=== PATIENT | female | born 1980 | race Two or more races ===

== ENCOUNTER 2024-10-14 06:04 | Emergency (ER) | payer MEDICAID, SELFPAY ==
[2024-10-14 06:05] VITALS: BMI 45.2
[2024-10-14 06:10] VITALS: BP 158/89; PULSE 90; RESP 19; TEMP 36.5; O2SAT 99
--- NOTE | 2024-10-14 06:23 | XR_ITS ---
Examination: CT abdomen and pelvis without contrast. Coronal 3-D reconstructions. Sagittal 2-D reconstructions. Date and time of exam:October 14, 2024 at 0920 hrs. Indications: Onset right lower abdominal pain today CTDI: vol (mGy): 15.1 DLP: (mGycm): 908 Technique: Axial images of the abdomen have been obtained, 3 mm slice thickness Intravenous contrast material has not been administered. Low dose protocols were performed. One or more of the following dose reduction techniques were used; automated exposure control, adjustment of the mA and/or KV according to patient size, use of iterative reconstruction technique. Findings: Diffuse fatty infiltration throughout the liver Absent gallbladder Spleen not enlarged No pancreatic or adrenal mass No renal or ureteral calculi, no hydronephrosis Aorta normal size Inflammatory change about diverticula in the cecum with reactive lymph nodes Left lateral fat-containing pelvic wall hernia defect axial image 207 Anteverted uterus with uterine fundal masses Contracted urinary bladder Impression: Acute diverticulitis cecum, no peridiverticular abscess
--- NOTE | 2024-10-14 06:24 | PD.EDRME ---
Rapid Medical Screening Exam RME Arrival date/time: 10/14/24 06:04 Chief Complaint: Abdominal Pain Time Seen by Provider: 10/14/24 06:16 Vital signs: Vital Signs Temperature 97.7 F 10/14/24 06:10 Pulse Rate 90 10/14/24 06:10 Respiratory Rate 19 10/14/24 06:10 Blood Pressure 158/89 H 10/14/24 06:10 Pulse Oximetry (%) 99 10/14/24 06:10 Oxygen Delivery Method Room Air 10/14/24 06:10 Vital signs reviewed by provider: Yes RME Narrative: 49-year-old female presents for evaluation of right-sided abdominal pain. She reports that it radiates from her right lower quadrant to her right upper quadrant and right flank. She describes it as cramping with intermittent nausea. Denies emesis, vaginal bleeding, fever, chills, chest pain. LNMP x 6 weeks ago. Patient reports history of tubal ligation.
[2024-10-14] MEDS: KETOROLAC INJ 60 MG/2 ML VIAL 30 MG IM (06:38)
[2024-10-14 07:20] LABS: Basophils # (Auto) 0.1 Thou/mm3 (0.0-0.2); Basophils % (Auto) 0 % (0-2.5); Eosinophils # (Auto) 0.2 Thou/mm3 (0.0-0.5); Eosinophils % (Auto) 2 % (0-10); Hematocrit 37.7 % (36.0-46.0); Hemoglobin 11.7 g/dL (12.0-16.0); Immature Granulocytes % (Auto) 0 % (0-0); Immature Granulocytes Auto 0.04 Thou/mm3 (0.00-0.00); Lymphocytes % (Auto) 24 % (10-50); Mean Corpuscular Hemoglobin 26.4 pg (25.0-35.0); Mean Corpuscular Volume 85 fL (80-100); Monocytes # (Auto) 0.7 Thou/mm3 (0.0-0.8); Monocytes % (Auto) 6 % (0-12); Neutrophils # (Auto) 8.5 Thou/mm3 (1.8-7.7); Neutrophils % (Auto) 68 % (37-80); Nucleated Red Blood Cell % 0 /100 WBC (0); Platelet Count 316 Thou/mm3 (140-440); RDW Standard Deviation 50.6 fL (36.4-46.3); Red Blood Count 4.44 Miln/mm3 (4.00-5.20); White Blood Count 12.4 Thou/mm3 (3.6-11.0)
[2024-10-14 07:42] LABS: Alanine Aminotransferase 74 U/L (10-49); Albumin, Serum 4.3 gm/dL (3.5-5.0); Albumin/Globulin Ratio 1.3 (1.2-2.2); Alkaline Phosphatase 132 U/L (46-116); Anion Gap 5 (7-16); Aspartate Amino Transferase 55 U/L (0-34); BUN/Creatinine Ratio 22 Ratio (12-20); Bilirubin,Total 0.5 mg/dL (0.3-1.2); Blood Urea Nitrogen 11 mg/dL (9-23); Calcium 9.2 mg/dL (8.3-10.6); Calcium (Corrected) 9.2 mg/dL (8.5-10.1); Carbon Dioxide 26.1 mMol/L (20.0-31.0); Chloride 107 mMol/L (98-107); Creatinine (Component) 0.5 mg/dL (0.6-1.3); Estimated Creatinine Clearance 152.4 mL/min (>60); Globulin 3.2 gm/dL (2.3-3.5); Glucose 124 mg/dL (74-106); Lipase 38 U/L (12-53); Osmolality,Calculated 276 (275-295); Sodium 138 mMol/L (136-145); Total Protein 7.5 gm/dL (5.7-8.2); eGFR > 60 See Note
[2024-10-14 08:15] LABS: Collection Type, Urine Clean Catch
[2024-10-14 08:45] LABS: Bilirubin,Urine Negative (Negative); Blood,Urine Negative (Negative); Clarity,Urine Clear (Clear/Hazy); Color,Urine Lt-Yellow (Lt Yel-Yel); Glucose, Urine Negative (Negative); Ketones,Urine Negative (Negative); Leukocyte Esterase,Urine Positive (Negative); Nitrite,Urine Negative (Negative); Protein,Urine Negative (Neg - Trace); RBC,Urine 2 /hpf (0-3); Specific Gravity,Urine 1.022 (1.001-1.035); Squamous Epithelial Cell,Urine 8 /hpf (0-5); Urobilinogen,Urine Negative mg/dL (0.0-1.0); WBC,Urine 4 /hpf (0-5)
[2024-10-14 09:00] LABS: HCG Qualitative,Urine Negative
--- NOTE | 2024-10-14 10:36 | EDNOTE_ITS ---
ED Abdominal Pain RME/HPI General Chief Complaint: Abdominal Pain Stated complaint: ABD PAIN X 1DAY Time seen by provider: 10/14/24 06:16 Arrival date/time: 10/14/24 06:04 Limitations: no limitations RME / HPI RME / HPI narrative: 49-year-old female presents for evaluation of right-sided abdominal pain. She reports that it radiates from her right lower quadrant to her right upper quadrant and right flank. She describes it as cramping with intermittent nausea. Denies emesis, vaginal bleeding, fever, chills, chest pain. LNMP x 6 weeks ago. Patient reports history of tubal ligation. Related Data Previous Rx's ?Medication ?Instructions ?Recorded HYDROCODONE BIT/ACETAMINOPHEN 1 tab PO Q4HR PRN PAIN SCALE 4-6 11/20/16 (Vicodin 5/300) (Moderate #30 tabs bisacodyl 10 mg rectal suppository 10 mg MD QDAY PRN constipation #12 12/02/18 (Dulcolax (bisacodyl)) ea dicyclomine 20 mg tablet 20 mg PO QID PRN abdominnal 12/02/18 cramping #10 tabs magnesium citrate 150 ml PO QDAY PRN constipation 12/02/18 #296 mL polyethylene glycol 3350 17 gram 17 gm PO QDAY PRN constipation #7 12/02/18 oral powder packet (Miralax) ea Allergies Allergy/AdvReac Type Severity Reaction Status Date / Time calcium Allergy Mild RASH Verified 12/02/18 08:52 iron Allergy Mild RASH Verified 12/02/18 08:52 Review of Systems Constitutional Constitutional: Denies body ache(s), Denies chills and Denies fever(s) ENT Ears, Nose, Mouth, and Throat: Denies disequilibrium, Denies dizziness and Denies neck pain Cardiovascular Cardiovascular: Denies chest pain, Denies dyspnea and Denies leg edema Respiratory Respiratory: Denies cough and Denies dyspnea Gastrointestinal Gastrointestinal: Reports abdominal pain, Denies change in stool character, Denies constipation, Denies excessive flatus, Denies loose stools, Denies melena, Reports nausea and Denies vomiting Genitourinary Genitourinary: Reports amenorrhea, Denies dysuria, Reports flank pain (right) and Denies hematuria Musculoskeletal Musculoskeletal: Denies back pain, Denies neck pain and Denies numbness Integumentary/Breasts Skin/Breast: Denies rash Neurologic Neurologic: Denies disequilibrium, Denies dizziness and Denies numbness Past Medical History Social History SMOKING STATUS: Never smoker ED Exam General Limitations: Present no limitations General appearance: Present alert and in no apparent distress Head Head exam: Present atraumatic and normocephalic Eye Eye exam: Present normal appearance and EOMI ENT ENT exam: Present normal exam, normal oropharynx and mucous membranes moist Neck Neck exam: Present normal inspection and full ROM Chest Chest inspection: Present normal inspection and symmetric chest wall rise Respiratory Respiratory exam: Present normal lung sounds bilaterally; Absent respiratory distress Cardiovascular Cardiovascular exam: Present regular rate and +S1 Abdominal Exam Abdominal exam: Present soft and normal bowel sounds; Absent distention, tenderness, guarding, rebound, rigidity, organomegaly, psoas sign, Rovsing's sign, ascites, mass, bruit or pulsatile mass Extremities Exam Extremities exam: Present normal inspection and full ROM Back Exam Back exam: Present normal inspection and full ROM; Absent CVA tenderness (R) or CVA tenderness (L) Neurological Exam Neurological exam: Present alert and normal gait Psychiatric Psychiatric exam: Present normal affect Skin Skin exam: Present warm, dry and normal color Course Quality Measures none Orders Category Date Time Status CT abdomen pelvis wo con Stat Exams 10/14/24 06:23 Completed CBC Stat Lab 10/14/24 07:01 Completed CMP [Comprehensive Metabolic Panel] Stat Lab 10/14/24 07:01 Completed HCG Qualitative,Urine Stat Lab 10/14/24 08:09 Completed Lipase Stat Lab 10/14/24 07:01 Completed UA [Urinalysis] Stat Lab 10/14/24 08:09 Completed Ciprofloxacin HCl [Ciprofloxacin] Med 10/14/24 10:36 Discontinued 750 mg PO X1 ONE Ketorolac Inj [Toradol Inj] Med 10/14/24 06:23 Discontinued 30 mg IM X1 ONE metroNIDAZOLE [Flagyl] Med 10/14/24 10:36 Discontinued 500 mg PO X1 ONE Vital Signs Vital signs: Vital Signs Temperature 97.7 F 10/14/24 06:10 Pulse Rate 90 10/14/24 06:10 Respiratory Rate 19 10/14/24 06:10 Blood Pressure 158/89 H 10/14/24 06:10 Pulse Oximetry (%) 99 10/14/24 06:10 Oxygen Delivery Method Room Air 11/29/24 06:10 pulse ox 99% on RA, wnl. Abdominal Pain MDM MDM Narrative MDM Narrative:: 44-year-old female presented for evaluation of right sided abdominal pain. Patient reports history of appendectomy and cholecystectomy. Vital signs reassuring. Patient nontoxic-appearing with benign abdominal exam. Given her vague symptoms CT abdomen pelvis was ordered which showed fatty liver inf iltrates and diverticulitis involving the cecum without abscess. Antibiotics were ordered, however unfortunately patient left the emergency department before we could fully discussed the results of her workup today. Nursing staff attempted to call her multiple times but unfortunately she did not answer her phone. Patient remained stable in the department and a prescription was sent for antibiotics. Patient data External records reviewed:: [facility] previous records Clinical information provided by:: patient Social determinants that could affect healthcare access:: none Patient has the following chronic illnesses:: None reported. How is presenting disease/condition affected by chronic disease/condition?: no chronic disease Evaluation data The following diagnostics were reviewed and interpreted by me:: lab results and radiology exam(s) Lab and/or radiology exams considered but not ordered:: Considered not ordered. Interpretation Summary: Transaminitis with mild leukocytosis. Negative . CT abdomen showing diverticulitis involving the cecum without abscess. Absent appendix and gallbladder. Mild anemia without evidence of hemorrhage. Medications / Prescriptions Medications or Prescriptions considered but not ordered:: Rx given. Medication administrations:: Medication Administration History Discontinued Medications Ciprofloxacin (Ciprofloxacin Hcl 250 Mg Tablet) 750 mg PO X1 ONE Stop: 10/14/24 10:37 Last Admin: 10/14/24 10:53 Dose: 750 mg Documented By: UMAIR Ketorolac Tromethamine (Ketorolac Inj 60 Mg/2 Ml Vial) 30 mg IM X1 ONE Stop: 10/14/24 06:24 Last Admin: 10/14/24 06:38 Dose: 30 mg Documented By: ALEKSANDAR Metronidazole (Metronidazole 250 Mg Tablet) 500 mg PO X1 ONE Stop: 10/14/24 10:37 Last Admin: 10/14/24 10:53 Dose: 500 mg Documented By: UMAIR Rx given. Consultations Consultation(s) initiated? (list below): No Diagnosis Differential diagnosis abdominal pain: abdominal pain, calculus of kidney, diverticulitis, endometriosis, gastroenteritis, pancreatitis, small bowel obstruction and other Most likely diagnosis given after review of the tests above:: Nonspecific abdominal pain. Admission Indicated Admission indicated?: not indicated Admission Request Was there a request for admission?: No Disposition Plan Disposition Plan: Discharge Discharge Attestation Discharge Attestation: The patient and all family members were given an opportunity to ask questions and understood the discharge instructions. Discharge instructions specifically effects, indications for sooner follow up or return to the emergency department, and the expected course of current diagnosis. Patient condition: Stable Discharge Plan Plan Patient Disposition: HOME (Self Care) Prescriptions/Referrals Prescriptions/Med Rec: No Action HYDROCODONE BIT/ACETAMINOPHEN (Vicodin 5/300) 1 TAB tablet 1 tab PO Q4HR PRN (Reason: PAIN SCALE 4-6 (Moderate) Qty: 30 0RF dicyclomine 20 mg tablet 20 mg PO QID PRN (Reason: abdominnal cramping) Qty: 10 0RF magnesium citrate solution 150 ml PO QDAY PRN (Reason: constipation) Qty: 296 0RF Rx Instructions: only 1 dose today bisacodyl [Dulcolax (bisacodyl)] 10 mg suppository 10 mg MD QDAY PRN (Reason: constipation) Qty: 12 0RF Rx Instructions: if magnesium citrate and miraplax not effectiove polyethylene glycol 3350 [Miralax] 17 gram powder in packet 17 gm PO QDAY PRN (Reason: constipation) Qty: 7 0RF Rx Instructions: if magnesium citare no effectibe hold for loose stool Referrals: Federico Nelson MD [Primary Care Provider] - In 1 week Problem List Clinical Impression: Abdominal pain, Hernia of abdominal cavity, Diverticulitis, Elevated LFTs Patient/Caregiver Discharge Instructions Other Activity Instructions:: Take metronidazole and ciprofloxacin as prescribed for the next x 7 days for diverticulitis. Take ibuprofen as needed for abdominal pain. Follow-up with primary care within the next week for further evaluation of abdominal pain and elevated liver enzymes. Return to the ED if your symptoms worsen or change. Education Materials: Abdominal Pain, ED Diverticulitis Print Language: Iraqi Stand Alone Forms: Mattie Award Info., Patient Portal Info Letter PA/[employer] Supervising Physician PA/[employer] Supervising Physician: Dr. Lynch
[2024-10-14] MEDS: CIPROFLOXACIN HCL 250 MG TABLET 750 MG PO (10:53)
[2024-10-14] MEDS: metroNIDAZOLE 250 MG TABLET 500 MG PO (10:53)
--- NOTE | 2024-10-14 11:15 | PC.NURSE ---
NO ANSWER IN LOBBY
--- NOTE | 2024-10-14 11:45 | PC.NURSE ---
NO ANSWER IN LOBBY
== END 2024-10-14 12:04 | disposition home or self-care (01) ==
PROVIDERS: Physician Assistant; Emergency Provider Emergency Medicine; PCP Family Medicine
DX: K57.32 Diverticulitis of large intestine without perforation or abscess without bleeding (principal); K43.9 Ventral hernia without obstruction or gangrene; R79.89 Other specified abnormal findings of blood chemistry
CPT/HCPCS: 36415; 74176; 80053; 81001; 81025; 83690; 85025; 96372; 99284; J1885; A9270